=== PATIENT | female | born 1965 | race Caucasian/White ===

== ENCOUNTER → 2016-05-26 | Outpatient (CLI) | payer OTHER ==
[~2016-05-26] MED LIST: ALPR0.5T PO; ASPI81TA25 PO; DICY20TA35 PO; OXYC-57 PO
--- NOTE | 2016-05-27 06:18 | PAP/PSG TECHNICIAN REPORT ---
[facility] Financial Services Internship Polysomnogram Report Study name: None Report date: 05/27/2016 Study date: 05/26/2016 Referring Physician: Abundio MEJIAS M.D. Name: KOREY BLACK Interpreting Physician: Sofia Mejias M.D. Date of : 1965 Financial Services Internship: Lyudmila Read RPSGT. Sex: Female Age: 51 Study Type: PSG PAP Weight: 172 lbs 14.25 in Height: 51 years, Height 5' 4" Neck Circum: BMI: 29.52 Medications: ALPRAZOLAM 0.5 MG, ASPIRIN 81 MG Patient History 51 yr-old female here for a new CPAP treatment study. She was found to be positive for MIGUEL via a home sleep study. Her Dickinson scale is 20. She chose a Greenberg FX nasal pillows mask size medium from [employer]. The test was started on room air and 4 CMH2O. ETCO2 testing was not utilized during this study. Room 1 Parameters Monitored NPSG: E1-M2, E2-M1, Fp1-M2, Fp2-M1, F3-M2, F4-M2, F4-M1, C3-M2, C4-M2, C4-M1, O1-M2, O2-M2, O2-M1, T3-M2, T4-M1, P3-M2, P4-M1, CHIN1, CHIN2, HR, EKG, Legs, PFLOW, SNOR, FLOW, CFLOW, Tidal Volume, THOR, ABDO, SpO2, PLTH, CPRESS, ETCO2 Wave, ETCO2, pH Sleep Architecture Sleep Stages Time at Lights Off 11:06:49 PM STAGES Time (min.) TST (%) Time at Lights On 5:43:49 AM Wake 44.0 -- Total Recording Time (TRT) 397.00 min. N1 28.5 8 Total Sleep Period (TSP) 382.0 min. N2 216.5 61 Total Sleep Time (TST) 353.0min. N3 13.5 4 Awake Time 44.0 min. REM 94.5 27 Wake after Sleep Onset 29.0 min. Sleep Efficiency (SE) 89 % Sleep Onset Latency (JAYLEN) 15.0 min. Number of Stage 1 Shifts None Awakenings 14 Stage Changes 71 Number of REM periods 3 REM 94.5 27 REM Latency 81.5 min. NREM 258.5 73 Body Position Analysis Supine Right Left Side Prone Vertical Total Sleep Time (min.) 0.4 76.7 276.3 353.00 2.3 0.0 Total Sleep Time (%) 0% 22% 78% 100 0% N/A% Total Sleep Time REM (min.) 0.0 43.0 51.5 None 0.0 0.0 Total Sleep Time NREM (min.) 0.0 33.7 224.8 None 0.0 0.0 Intermittent Wake (min.) 0.4 18.2 23.1 None 2.3 0.0 Total Sleep Period (%) 0% None None None None None Arousals Myoclonus (PLM) * Events Count Index Events Count Index Spontaneous 35 6 Events Awake (PLMW) 41 55.9 Respiratory 0 0.0 Events Asleep w/ Arousal (PLMA) 3 0.5 PLM 3 1 Events Asleep w/o Arousal (PLMS) 73 12.4 Snoring 15 3 Total Asleep 76 12.9 Total 52 9 Total 117 18 Respiratory Analysis * CA OA MA CH H RERA Total Count 1 0 0 0 0 0 1 Index 0.2 0.0 0.0 0 0.0 0 0.2 Mean Duration 10.4 0.0 0.0 0.00 0.0 0.0 10.4 Longest Duration 10.4 0.0 0.0 0.00 0.0 0.0 10.4 Respiratory Event Summary Total Supine ~Supine Right Left Prone REM NREM Apneas Count 1 N/A 1 1 0 N/A 1 0 Index 0.2 N/A 0 0.8 0.0 N/A 1 0 Hypopneas (4% Desat) Count 0 N/A 0 0 0 N/A 0 0 Index 0.0 N/A 0 0.0 0.0 N/A 0.0 0.0 Apneas & All Hypopneas Count 1 N/A 1 1 0 N/A 1 0 Index 0.2 N/A 0 1 0 N/A 0.6 0.0 Respiratory Events (Director Of Food And Nutrition Services+All Hyp+RERA) Count 1 N/A 1 1 0 N/A 1 0 Index 0.2 N/A 0 0.8 0.0 N/A 0.6 0.0 Respiratory Related Arousal Count 0 N/A 0 0 0 N/A 0 0 Index 0.0 N/A 0 0 0 N/A 0 0 Snoring Analysis Supine Right Left Prone REM NREM Total Snore duration 60.2 min Snores count N/A 332 1,647 N/A 5 1,974 1,979 Snore mean duration 1.8 Sec Snores index N/A 260 358 N/A 3.2 458.2 336.4 TST with snoring (%) 17.1% Desaturation Event Summary: Minimum %SpO2 Event Count Mean/Min/Max Duration(sec.) Desaturation Index % Time In Bed > 90 4 34.6 / 5.3 / 53.0 0.6 100.0 86 - 90 0 N/A 0.0 0.0 81 - 85 0 N/A 0.0 0.0 76 - 80 0 N/A 0.0 0.0 71 - 75 0 N/A 0.0 0.0 66 - 70 0 N/A 0.0 0.0 61 - 65 0 N/A 0.0 0.0 56 - 60 0 N/A 0.0 0.0 51 - 55 0 N/A 0.0 0.0 < 50 0 N/A 0.0 0.0 Total REM NREM Awake <50% 0.0 min. 0.0 min. 0.0 min. 0.0 min. 51 - 60% 0.0 min. 0.0 min. 0.0 min. 0.0 min. 61 - 70% 0.0 min. 0.0 min. 0.0 min. 0.0 min. 71 - 80% 0.0 min. 0.0 min. 0.0 min. 0.0 min. 81 - 90% 0.0 min. 0.0 min. 0.0 min. 0.0 min. 91 - 100% 394.6 min. 94.5 min. 258.5 min. 41.6 min. Average 95 95 95 95 Minimum SpO2 91 91 92 93 Desaturation Event Index 0.6 0.6 0.0 4.1 # Desat. Events below 89% N/A N/A N/A N/A Time(%) with Saturation below 89% 0.0 0.0 0.0 0.0 Time(min.) with Saturation below 89% 0.0 0.0 0.0 0.0 Time (mins) REM (mins) NREM (mins) % of TST SpO2 Below 90% N/A N/A NN/A 0.0 SpO2 Below 88% 0 0 0 0 Heart Rate Analysis Min (bpm) Max (bpm) Average (bpm) Awake 61 95 78 NREM 61 83 73 REM 59 84 71 Overall 59 84 73 Supplemental O2 Values Minimum O2 level: None Value Start Time End Time Financial Services Internship Comments Ms. Black slept in the right, left, and prone positions. No cardiac arrhythmias or PLMs noted. No bruxism noted. CPAP was initiated at +4 CMH2O and up-titrated to a level of +6 CMH2O, Cflex 2 which nearly eliminated all respiratory events and snoring. A Greenberg FX nasal pillows mask size medium from [employer] was used during titration She did not wake up to use the restroom during the night. Ms. Black stated that she slept about the same as usual. The final report will be interpreted and signed by a sleep physician. The completed physician report will then be placed in the patient medical record. CPAP REPORT Therapy Detail Time / Page # Comment CPAP 4 cm H2O Nasal Pillow Mask Flex Pressure Relief Humidifier on 11:05:26 PM / pg. 332 CPAP 5 cm H2O Nasal Pillow Mask Flex Pressure Relief Humidifier on 11:45:02 PM / pg. 411 INCREASED FOR SNORING CPAP 6 cm H2O Nasal Pillow Mask Flex Pressure Relief Humidifier on 2:46:08 AM / pg. 773 INCREASED FOR SOME SNORING AROUSALS Therapy Event: Therapy (cm H20) 4 5 6 Total Time at Pressure (min.) 38.2 181.1 177.7 TST at Pressure (min.) 22.7 163.1 167.2 # Periods 1 1 1 Sleep Onset (min.) 15.0 0.0 0.0 REM Onset (min.) N/A 58.3 56.7 Sleep Efficiency % 59 90 94 Wakefulness (%) 40.6 9.9 5.9 Wakefulness (min.) 15.5 18.0 10.5 NREM 1 (%) 15.7 5.8 6.8 NREM 1 (min.) 6.0 10.5 12.0 NREM 2 (%) 43.8 48.4 63.1 NREM 2 (min.) 16.7 87.6 112.2 NREM 3 (%) 0.0 7.5 0.0 NREM 3 (min.) 0.0 13.5 0.0 REM (%) 0.0 28.4 24.2 REM (min.) 0.0 51.5 43.0 # Arousals 8 25 19 Arousal Index 21.1 9.2 6.8 # Snore 237 1,054 688 Snore Index 625.8 387.7 246.9 AHI 0.0 0.0 0.4 AHI Supine N/A N/A N/A AHI Non-Supine 0.0 0.0 0.4 NREM AHI 0.0 0.0 0.0 REM AHI N/A 0.0 1.4 RDI 0.0 0.0 0.4 # Obstructive 0 0 0 # Central Ap 0 0 1 # Mixed 0 0 0 # Hypopneas 0 0 0 RERAS 0 0 0 Total Respiratory Events 0 0 1 Time Below SpO2 89.00% (min.) 0.0 0.0 0.0 Mean NREM SpO2 (%) 94 94 95 Mean REM SpO2 (%) N/A 95 95 Mean Sleep SpO2 (%) 94 95 95 Min NREM SpO2 (%) 93 92 93 Min REM SpO2 (%) N/A 91 92 Position Supine (min.) 0.0 0.0 0.0 Position Non-supine (min.) 22.7 163.1 167.2 LM Index Sleep 31.7 20.6 2.9 LM Index NREM 31.7 11.8 1.0 LM Index REM N/A 39.6 8.4 Mean Heart Rate (bpm) 78 75 69 Min Heart Rate (bpm) 74 64 59
--- NOTE | 2016-05-29 10:12 | POLYSOMNOGRAPH REPORT ---
REFERRING PERSON: Dr. Franny Mejias. MARKETING SPECIALIST: Lyudmila Read. Ms. Flannery is a 51-year-old female who had 2 home sleep studies which showed AHIs of 32 and 37 respectively. She is sent to the sleep lab today for a CPAP titration study. Her Wilber sleepiness scale score on the evening of this study is 20. BMI is 29.52. She has chosen a Greenberg FX nasal pillow mask in a medium size by [employer] for her titration. Following the technical and digital specifications of the [place] [employer] (AASM) a standard diagnostic polysomnogram was performed monitoring EEG, EOG, EMG (chin and leg deviations), oxygen saturation, body position, digital video, respiratory effort and airflow. The sleep Stage and event scoring was based on the AASM Manual for the Scoring of Sleep and Associated Events 2007 edition. Apneas are defined as a drop in the peak thermal sensor excursion by >90% of baseline for at least 10 seconds. Hypopneas were scored using the 4% oxygen desaturation rule (4A-Medic[employer]) and a decrease in the nasal pressure excursions by >30% of baseline for at least 10 seconds. Respiratory effort-related arousal (RERA's) is defined as a sequence of breaths lasting at least 10 seconds characterized by increasing respiratory effort or flattening of the nasal pressure waveform leading to an arousal from sleep when the sequence of breaths does not meet criteria for an apnea or hypopnea. Apnea Hypopnea index (AHI) is defined as the number of apneas and hypopneas occurring in an hour of sleep. Respiratory disturbance index (RDI) is defined as the number of apneas, hypopneas, and RERA's occurring in an hour of sleep. Ms. Webers total sleep period time was 382 minutes. Total sleep time was 353 minutes. Sleep efficiency was 89%. Latency to sleep onset was 15 minutes with wake after sleep onset of 29 minutes. Total non-REM sleep time was 258.5 minutes. She spent 8% of that time in N1 sleep, 61% in N2 sleep and 4% in N3 sleep. REM latency was 81.5 minutes. Total REM sleep time was 94.5 minutes or 27% of total sleep time. There were 52 cortical arousals from sleep. Fifteen of these arousals were due to snoring, 3 due to periodic limb movements of sleep and the remaining 35 were spontaneous. There were 76 periodic limb movements noted on this test. Limb movement index was 12.9. Limb movement with arousal index was 0.5. There was 1 central, no obstructive, and no mixed apneas on this test. There were no hypopnea and no RERA. Apnea-hypopnea index was normal at 0.2. There were 1979 snoring events recorded. Total sleep time with snoring was 17%. Mean saturation during this titration was 95% with desaturations only as low at 91%. There was no cardiac ectopy noted on this test. Heart rates ranged from a low of 59 beats per minute to a high of 84 beats per minute during sleep. As stated above, this was a CPAP titration study. She was titrated from a CPAP pressure of 4 to a CPAP pressure of 6 over the course of the night. Increasing pressures were needed to prevent mild respiratory events. She was observed on a pressure of 6 for 167.2 minutes of sleep time. During that time, her AHI and RDI were both 0.4. She spent 43 minutes in REM sleep, but did not have any supine REM sleep on this pressure. There were no desaturations less than 89%. IMPRESSION AND PLAN: A 51-year-old female with severe sleep apnea on back to back home sleep tests, who appears to have complete resolution of her apnea, as well as nocturnal hypoxemia, on a CPAP pressure of 6. I would start her on CPAP at 6. A download from her machine should be reviewed in 1 month both to check compliance, as well as Apnea/Hypopnea index, and further pressure adjustments should occur at that time.
== END | disposition home or self-care (01) ==
LOC: C.NEUR 20:00
PROVIDERS: ATTEND Family Medicine
DX: G47.33 Obstructive sleep apnea (adult) (pediatric) (principal)

== ENCOUNTER → 2016-10-08 | Outpatient (CLI) | payer OTHER ==
--- NOTE | 2016-10-08 15:19 | DIAGNOSTIC IMAGING REPORT ---
LUMBAR SPINE 5 VIEWS HISTORY: Pain M54.5 Low back [id number] COMPARISON: None. FINDINGS: There is no fracture. No subluxation. Moderate degenerative disc change. No evidence for compression deformity. IMPRESSION: Moderate degenerative change. No acute process. Electronically signed by: Zack Rose M.D. 10/08/2016 3:18 PM Dictated Date/Time: 10/08/2016 3:18 PM
== END | disposition home or self-care (01) ==
LOC: C.RAD1850 15:03
PROVIDERS: ATTEND Internal Medicine
DX: M54.5 Low back pain (principal); M51.36 Other intervertebral disc degeneration, lumbar region

== ENCOUNTER → 2016-12-15 | Outpatient (CLI) | payer OTHER ==
--- NOTE | 2016-12-15 16:25 | DIAGNOSTIC IMAGING REPORT ---
LUMBAR SPINE MRI HISTORY: Low back pain. TECHNIQUE: Multiplanar multisequence MRI of the lumbar spine was performed without the use of contrast. COMPARISON: Lumbar spine 10/08/2016. FINDINGS: For the purpose of the report the L5-S1 disc space will be located on axial image 23 of 25. Straightening the lumbar spine. Alignment is intact. Endplate edema at L4 is likely due to a Schmorl's node. The conus terminates at the L1-2 disc space level. There is 6 mm T2 hyperintense focus at the distal thoracic spinal cord at the T12-L1 level. Mild to moderate disc space narrowing at L1-L2, L2-L3, L3-L4. Mild disc space narrowing at L4-L5. Moderate facet degenerative changes seen within the lower lumbar spine. L1-L2: Broad-based posterior disc bulge resulting in mild central canal narrowing. No significant central canal narrowing. L2-L3: Tiny broad-based posterior disc bulge without significant central canal or neural foraminal narrowing. L3-L4: Tiny broad-based posterior disc bulge without significant central canal or neural foraminal narrowing. L4-L5: Small broad-based posterior disc bulge with ligamentum and facet hypertrophy resulting in mild central canal and mild to moderate bilateral neural foraminal narrowing. L5-S1: Small broad-based posterior disc bulge with a focal central annular tear. No significant central canal narrowing. Mild bilateral neural foraminal narrowing due to the facet hypertrophy. IMPRESSION: 1. Mild multilevel lumbar spondylosis as described above. This is most pronounced at the L1-L2 level. 2. Straightening of the lumbar spine. 3. L4 superior endplate edema. This is likely due to a Schmorl's node. No acute fractures identified. 4. A 6 mm nonspecific T2 hyperintense focus within the distal thoracic spinal cord at the T12-L1 level. Follow-up dedicated thoracic spine MRI with and without intravenous contrast is recommended for further evaluation. This could represent a small focus of demyelination. Electronically signed by: Liam Levy M.D. 12/15/2016 4:23 PM Dictated Date/Time: 12/15/2016 4:13 PM
== END | disposition home or self-care (01) ==
LOC: C.MRI 15:35
PROVIDERS: ATTEND Internal Medicine
DX: R29.898 Other symptoms and signs involving the musculoskeletal system (principal)

== ENCOUNTER → 2017-01-01 | Outpatient (CLI) | payer OTHER ==
[~2017-01-01] MED LIST changes: +GADAVIST IV PRN
--- NOTE | 2017-01-01 17:15 | DIAGNOSTIC IMAGING REPORT ---
THORACIC SPINE COMBO CLINICAL HISTORY: 51 years-old Female presenting with 6 mm focus in the thoracic spinal cord, concern for demyelinating disease at T11-12, no history of cancer prior surgery, right leg numbness for one year with left buttock pain and numbness on the no known trauma. TECHNIQUE: Multisequence, multiplanar MR imaging of the thoracic spine was performed before and after the administration of intravenous contrast. IV contrast: 7.7 mL of Gadavist. COMPARISON: None. FINDINGS: Localizer images: Unremarkable. Normal thoracic kyphosis. Vertebral bodies maintain normal height and alignment. Endplate changes noted at T5-6 through T8-9, primarily fatty and edematous endplate changes with mild enhancement on postcontrast imaging. No abnormal fluid signal within the associated intervertebral disc spaces to suggest discitis. No paraspinal inflammatory change. Disc osteophyte complex noted at T7-8 with resultant mild effacement of the ventral thecal sac and contouring of the ventral aspect of the spinal cord. Posterior CSF is preserved at this level. No abnormal spinal cord signal intensity results. No significant neural foraminal narrowing throughout the thoracic spinal cord. Precontrast imaging demonstrates largely normal morphology and signal intensity of the spinal cord including at the T11-12 level is normal. However, suggestion of a focal possible signal abnormality along the ventral cord at the T12-L1 level. Postcontrast imaging demonstrates no abnormal enhancement of the spinal cord. Paraspinal soft tissues within normal limits. IMPRESSION: 1. Disc osteophyte complex at T7-8 with resultant effacement of the ventral thecal sac with contouring of the spinal cord. No convincing evidence of spinal cord impingement. No neural foraminal narrowing. 2. Questionable abnormal signal intensity along the ventral spinal cord at T12-L1. Demyelinating disease cannot be excluded, although if present, the lack of enhancement implies no demyelination. Electronically signed by: Darius Rodas M.D. 01/01/2017 5:14 PM Dictated Date/Time: 01/01/2017 5:06 PM
== END | disposition home or self-care (01) ==
LOC: C.MRI 15:22
PROVIDERS: ATTEND Physician Assistant Medical
DX: R93.7 Abnormal findings on diagnostic imaging of other parts of musculoskeletal system (principal); M25.78 Osteophyte, vertebrae

== ENCOUNTER → 2017-04-09 | Outpatient (CLI) | payer OTHER ==
[~2017-04-09] MED LIST changes: -GADAVIST IV PRN
--- NOTE | 2017-04-09 10:57 | DIAGNOSTIC IMAGING REPORT ---
CERVICAL WITHOUT CONTRAST HISTORY: Pain. Neuropathy. BACK PAIN TECHNIQUE: Multiplanar multisequence MRI of the cervical spine was performed without the use of contrast. COMPARISON STUDY: None FINDINGS: Moderate degenerative disc changes identified throughout the entire cervical region. Sagittal images suggest left lateral column foci of increased signal of the cervical cord at C4, C5, and C6. Multilevel bulging disc components are also identified. C2-C3: No significant central canal or neural foraminal narrowing. C3-C4: Mild broad-based disc bulge. No significant impact with cervical cord or neural foramina. C4-C5: Osteophytic and bulging disc narrowing of the neuroforamina bilaterally. Minimal impact anterior cervical cord. C5-C6: Broad-based mild disc herniation with minimal impact anterior cervical cord. Moderate narrowing neural foramina on the left and to lesser extent right. Suggestion of a subtle increase in signal left lateral aspect of the cervical cord at C4 and C5. C6-C7: Osteophytic narrowing right and to lesser extent left neural foramina. Subtle increase in signal left lateral aspect cervical cord at C6. C7-T1: No significant central canal or neural foraminal narrowing. IMPRESSION: 1. Rather significant degenerative disc change throughout the entire cervical region. 2. Bulging discs/mild disc herniations at multiple levels as discussed above. 3. Foci of subtle increase in signal of the left lateral column of the cervical cord at C4, C6, and to a lesser extent C5. 4. A demyelinating disorder combined with the degenerative disc change must be considered. The above report was generated using voice recognition software. It may contain grammatical, syntax or spelling errors. Electronically signed by: Zack Rose M.D. 04/09/2017 10:56 AM Dictated Date/Time: 04/09/2017 10:46 AM
== END | disposition home or self-care (01) ==
LOC: C.MRI 09:45
PROVIDERS: ATTEND Orthopaedic Surgery Orthopaedic Surgery of the Spine
DX: M47.12 Other spondylosis with myelopathy, cervical region (principal); M50.30 Other cervical disc degeneration, unspecified cervical region; M50.20 Other cervical disc displacement, unspecified cervical region